=== PATIENT | female | born 1975 | race Caucasian/White ===

== ENCOUNTER 2017-07-28 18:42 | Emergency (ER) | payer MEDICAID ==
[~2017-07-28] VITALS: Ht 167.6 cm; Wt 81.6 kg
[~2017-07-28 18:42] MED LIST: PREDNISONE 20MG20 MG PO; TESSALON PERLE100 MG PO; ZITHROMAX Z PA250 MG PO
--- NOTE | 2017-07-28 19:57 | [facility]gent Treatment [facility] Report ---
History of Present Issue Date/Time Seen by Provider 07/28/171954 Visit Reason Pt arrived:Walked Presenting Problem:SORE THROAT X2 DAYS Location if Accident: Onset of symptoms date/time:/ or onset unknown for:MEDICAL HX UNKNOWN Have you (or family members/close friends) recently traveled outside the [place]? N If Yes, where/when: Have you had exposure to infectious disease within the past month? TB? Other? Specify: Patient states that she has had sorethroat, cough, sinus pain and pressure States that it hurts when she swallows or trys to eat something State that her throat feels raw and irritated State that she has tried to take over the counter medication but it has not helped so she came in State that she is blowing yellowish green from her nose and real tender in her sinuses ALLERGIES Coded Allergies: No Known Allergies (11/23/15) Home Medications Active Scripts Prednisone (Prednisone 20MG) 20 MG PO BID #10 TAB Prov: 11/23/15 BENZONATATE (Benzonatate) 100 MG PO TID #15 CAP Prov: 11/23/15 Azithromycin (Zithromycin (Z-LILLI) 250MG Tab) 250 MG PO DAILY #6 TAB Prov: 11/23/15 History Medical History General CAD? No Angina: No [place]: No Hypertension? No Hyperlipidemia? No CHF? No DVT? No PE? No COPD? No Asthma? No Anemia? No GERD? No Gastric ulcers? No GI Bleed? No Hernia? No Thyroid Problems? No Hypothyroidism? No CVA? No Seizures? No Diabetes? No Renal Insuffiency? No UTI? No Stones? No BPH? No GB Disease: No Nephritic Syndrome? No Asplenia? No Hepatitis? No Sickle Cell Disease? No Arthritis? No Migraines? No Cataracts? No Glaucoma? No MRSA? No HIV? No TB? No Anxiety? No Depression? No Cancer? No More? No Immunization HX DT/Tetanus 1-4 Years Ago Surgical Hx Previous Surgery?Y R ARM SX Social History Smoking Hx Smoker: Never Smoker Tobacco: No Alcohol Alcohol: No Review of Systems All Other Systems Reviewed and Negative Constitutional chills ENT nose congestion, throat pain. Respiratory cough, denies shortness of breath, denies wheezing Physical Exam Vital Signs Vital Signs Date Time Temp Pulse Resp B/P Pulse O2 O2 Flow FiO2 Ox Delivery Rate 07/28 1904 98.6 90 18 136/85 97 General Appearance normal appearance, WD/WN, no apparent distress Ear, Nose, Throat sinus pain/drainage, nasal congestion, throat red, irritated drainage noted with tenderness maxillary sinsus reports thick yellowish green drainage. Respiratory Status No: respiratory distress. Cardiovascular normal exam, regular rate/rhythm, no peripheral edema Neurologic alert, normal exam, oriented x 3 Medical Decision Making LABS/Meds/Orders Pt receiving controlled substance in ED? No Results/Orders Laboratory Tests 07/28/171924: Group A Strep Screen NOT DETECTED Orders Procedure Date/time Status [facility] STREP SCREEN 07/28 1925 Complete Departure Departure Time of Disposition 1999 Disposition DC Home or Self Care(routine) Clinical Impression Primary Impression: Sinusitis Qualifiers: Sinusitis location: unspecified location Chronicity: unspecified Qualified Code: J32.9 - Chronic sinusitis, unspecified Condition STABLE Patient Instructions DI for Sinusitis, Sinus Headache, Sinusitis, Sore Throat Additional Instructions * Monitor Temp. Tylenol and/or Ibuprofen as needed. ER if fever is no less than 101 despite alternating Tylenol and Ibuprofen * Encourage fluids, water, Gatorade, powerade, pedialyte if infant/toddler/or child * Warm salt water gargles for throat irritation *Warm fluids *Sore throat lozenges *Sleep elevated *humidifier or vaporizer Lots of rest Increase fluids, water, Gatorade, powerade *Bromfed may cause drowsiness. Know how it effect you or your child. Before driving, caring for small children or sending your child to school *Your throat swab was sent to lab for culture. Those results area typically sent to your primary care physician. Be sure to follow up in 2-3 days if no improvement so they can review those results and treat if necessary If you dont have primary care I recommend you get one, but in the mean time you will have to return to a walk in clinic Follow up IMMEDIATELY for new or worsening of symptoms OR no noticeable improvement over the next 48-72 hours. 911 immediately for any life threatening symptoms such as chest pain or difficulty breathing Discharge Counseling Counseled pt/family regarding diagnosis, test results, medications/RX, home care, follow up needs Prescriptions Current Visit Scripts Amoxicillin/Potassium Clav (Augmentin 875-125 Tablet) 1 EACH PO BID #14 TAB D-METHORPHAN HB/P-EPD HCL/BPM (Bromfed Dm Cough Syrup) 10 ML PO Q4HP PRN cough #120 SYR Fluticasone Propionate (Flonase 50 Mcg Nasal [place]) 2 SPRAY NA DAILY #1 BOT Methylprednisolone (Medrol Dose Lilli) 4 MG PO UD #1 LILLI TAKE DIRECTED ON PACKAGING Phenol (CHLORASEPTIC THROAT SPRAY) 1 SPRAY MM PRN PRN throat pain #1 BOT at 2005
[2017-07-28] MEDS ORDERED: MEDROL 4MG. DOSE4 MG PO (20:04)
[2017-07-28] MEDS ORDERED: AUGMENTIN 875-1 EACH PO (20:04)
[2017-07-28] MEDS ORDERED: FLONASE 50 MCG16 GM (20:04)
[2017-07-28] MEDS ORDERED: BROMFED DM COU118 ML PO (20:04)
[2017-07-28] MEDS ORDERED: CHLORASEPTIC S177 ML MM (20:04)
[2017-07-28 20:08] VITALS: BP 136/85
== END 2017-07-28 20:09 | disposition home or self-care (01) ==
LOC: UTC 18:42
DX: J32.9 Chronic sinusitis, unspecified (principal); Z79.52 Long term (current) use of systemic steroids; Z79.899 Other long term (current) drug therapy

== ENCOUNTER 2017-08-21 15:07 | Emergency (ER) | payer MEDICAID ==
[~2017-08-21] VITALS: Ht 167.6 cm; Wt 81.6 kg
[~2017-08-21 15:07] MED LIST changes: +AUGMENTIN 875-1 EACH PO; +BROMFED DM COU118 ML PO; +CHLORASEPTIC S177 ML MM; +FLONASE 50 MCG16 GM; +MEDROL 4MG. DOSE4 MG PO
--- NOTE | 2017-08-21 16:15 | Urgent Treatment Center Report ---
History of Present Issue Date/Time Seen by Provider 08/21/17 8959 Visit Reason Pt arrived:Walked Presenting Problem:VOMITING BEGAN YESTERDAY Location if Accident: Onset of symptoms date/time:/ or onset unknown for:MEDICAL HX UNKNOWN Have you (or family members/close friends) recently traveled outside the [place]? N If Yes, where/when: Have you had exposure to infectious disease within the past month? TB? Other? Specify: Patient state that she has veen vomiting since yesterday and unable to keep anything down State that she was afraid that she was going to get dehydrated State that she has been trying to sip on water and knew that she needed to come in and get a little something to take when she was unable to keep anything down ALLERGIES Coded Allergies: No Known Allergies (11/23/15) Home Medications Active Scripts Amoxicillin/Potassium Clav (Augmentin 875-125 Tablet) 1 EACH PO BID #14 TAB Prov: 07/28/17 D-METHORPHAN HB/P-EPD HCL/BPM (Bromfed Dm Cough Syrup) 10 ML PO Q4HP PRN cough #120 SYR Prov: 07/28/17 Fluticasone Propionate (Flonase 50 Mcg Nasal [place]) 2 SPRAY NA DAILY #1 BOT Prov: 07/28/17 Methylprednisolone (Medrol Dose Christopher) 4 MG PO UD #1 CHRISTOPHER Prov: 07/28/17 Phenol (CHLORASEPTIC THROAT SPRAY) 1 SPRAY MM PRN PRN throat pain #1 BOT Prov: 07/28/17 Prednisone (Prednisone 20MG) 20 MG PO BID #10 TAB Prov: 11/23/15 BENZONATATE (Benzonatate) 100 MG PO TID #15 CAP Prov: 11/23/15 Azithromycin (Zithromycin (Z-CHRISTOPHER) 250MG Tab) 250 MG PO DAILY #6 TAB Prov: 11/23/15 History Medical History General CAD? No Angina: No [place]: No Hypertension? No Hyperlipidemia? No CHF? No DVT? No PE? No COPD? No Asthma? No Anemia? No GERD? No Gastric ulcers? No GI Bleed? No Hernia? No Thyroid Problems? No Hypothyroidism? No CVA? No Seizures? No Diabetes? No Renal Insuffiency? No UTI? No Stones? No BPH? No GB Disease: No Nephritic Syndrome? No Asplenia? No Hepatitis? No Sickle Cell Disease? No Arthritis? No Migraines? No Cataracts? No Glaucoma? No MRSA? No HIV? No TB? No Anxiety? No Depression? No Cancer? No More? No Immunization HX DT/Tetanus 1-4 Years Ago Surgical Hx Previous Surgery?Y R ARM SX Social History Smoking Hx Smoker: Never Smoker Tobacco: No Alcohol Alcohol: No Review of Systems All Other Systems Reviewed and Negative Gastrointestinal nausea, vomiting Physical Exam Vital Signs Vital Signs Date Time Temp Pulse Resp B/P Pulse O2 O2 Flow FiO2 Ox Delivery Rate 08/21 1555 98.2 107 20 131/82 97 General Appearance Patient appears ill sitting on exam table Ear, Nose, Throat hearing grossly normal, normal ENT inspection Respiratory Status Yes: trachea midline, chest symmetrical, non tender chest. No: respiratory distress. Lung Sounds bilateral: normal breath sounds, lungs clear. Cardiovascular normal exam, regular rate/rhythm, no peripheral edema Gastrointestinal normal bowel sounds, normal exam, no guarding, no rebound Neurologic alert, normal exam, oriented x 3 Medical Decision Making LABS/Meds/Orders Pt receiving controlled substance in ED? No Results/Orders Current Medication Orders Sig/Jeet Start time Last Medication Dose Route Stop Time Status Admin Ondansetron HCl 0 .STK-MED ONE 08/21 162 DC .ROUTE Ondansetron HCl 8 MG ONCE ONE 08/21 161 DC IM 08/21 161 Departure Departure Time of Disposition 1622 Disposition DC Home or Self Care(routine) Clinical Impression Primary Impression: Gastroenteritis Condition STABLE Referrals NO REFERRAL (Family) Patient Instructions DI for Viral Gastroenteritis -- Adult, Viral Gastroenteritis Additional Instructions try very small amounts of water or suck on ice chips. diarrhea. children and infants should use products formulated for children, like oral rehydration solutions. Never give aspirin to children or teenagers with a viral illness. This can cause Aubrey syndrome, a potentially life-threatening condition. Discharge Counseling Counseled pt/family regarding diagnosis, medications/RX, home care, follow up needs Prescriptions Current Visit Scripts Ondansetron (Zofran 4MG Odt) 4 MG PO Q6HP PRN NAUSEA AND VOMITING #10 ODT at 1626
[2017-08-21] MEDS ORDERED: ZOFRAN ODT4 MG PO (16:28)
[2017-08-21 16:34] VITALS: BP 131/82
== END 2017-08-21 16:35 | disposition home or self-care (01) ==
LOC: UTC 15:07
DX: K52.9 Noninfective gastroenteritis and colitis, unspecified (principal)
CPT/HCPCS: J2405